=== PATIENT | male | born 1975 ===

== ENCOUNTER 2018-06-22 07:18 | Day surgery (SDC) | payer OTHER ==
[~2018-06-22] VITALS: Ht 177.8 cm; Wt 98.0 kg
[2018-06-22] VITALS (13 sets, daily range): BP systolic 99–133; BP diastolic 51–81
[~2018-06-22 07:18] MED LIST: NKM; Zemuron 50mg/5ml Inj IV ONE; ceFAZolin 1gm in D5W 55ml IVP SCH; celeBREX 200mg Cap **SURGERY PATIENTS ONLY ORAL SCH; oxyCONTIN 20mg tab ORAL SCH
--- NOTE | 2018-06-22 08:40 | Operative Note - PDOC ---
Operative Note Operative Note Pre-op Diagnosis: right shoulder labral tear/impingement Procedure: see op report Post-op Diagnosis: same as pre-op plus Operative Findings: consistent w/pre-op dx studies Anesthesia: regional Specimen: none Complications: none Condition: stable Estimated Blood Loss: none Implant(s) used?: No Matthias Omer MD Jun 22, 2018 08:40
--- NOTE | 2018-06-22 08:40 | Pre-Procedure Note/Attestation ---
Pre-Procedure Note/Attestation Complete Prior to Procedure Planned Procedure: right Procedure Narrative: shoulder arthroscopy, pssible labral repair, sad Indications for Procedure Pre-Operative Diagnosis: right shoulder labral tear/impingement Attestation I attest that I discussed the nature of the procedure; its benefits; risks and complications; and alternatives (and the risks and benefits of such alternatives ), prior to the procedure, with the patient (or the patient's legal billing representative). I attest that, if there was a reasonable possibility of needing a blood transfusion, the patient (or the patient's legal billing representative) was given the [facility] standardized written summary, pursuant to the [place] Blood Safety Act ([place] Health and Safety Code # 1645, as amended). I attest that I re-evaluated the patient just prior to the surgery and that there has been no change in the patient's H&P, except as documented below: Matthias Omer MD Jun 22, 2018 08:40
[2018-06-22] MEDS ORDERED: HYDROmorphone 1mg/ml Carpuject SUBQ PRN (08:45)
[2018-06-22] MEDS ORDERED: D5 1/2NS 1,000 ML IV SCH (08:45)
[2018-06-22] MEDS ORDERED: Norco 5mg/325mg tab ORAL PRN (08:45)
[2018-06-22] MEDS ORDERED: Tylenol #3 tab (300mg/30mg) ORAL PRN (08:45)
[2018-06-22] MEDS ORDERED: EPINEPHrine 1mg/1ml Amp ONE (08:46)
[2018-06-22] MEDS ORDERED: Bupivacaine 0.5% Inj 30 ml vial INJ ONE ×2 (08:47→09:18)
[2018-06-22] MEDS ORDERED: fentaNYL 100 mcg/2 mL IV ONE (08:57)
[2018-06-22] MEDS ORDERED: Midazolam 2mg/2ml Inj ONE (08:57)
--- NOTE | 2018-06-22 09:26 | Anethesia Preoperative Eval ---
Anesthesia Pre-op PMH/ROS General Date of Evaluation: Jun 22, 2018 Time of Evaluation: 09:25 Anesthesiologist: scotty ASA Score: ASA 2 Mallampati Score Class I : Soft palate, uvula, fauces, pillars visible Class II: Soft palate, uvula, fauces visible Class III: Soft palate, base of uvula visible Class IV: Only hard plate visible Mallampati Classification: Class I Surgeon: jerry Diagnosis: shoulder pain Surgical Procedure: shoulder arthroscopy Anesthesia History: none Family History: no anesthesia problems Allergies: Coded Allergies: No Known Allergies (Unverified , 06/20/18) Medications: see eMAR Past Medical History Cardiovascular: Denies: HTN, CAD, VT, valve dz, arrhythmia, other Pulmonary: Denies: asthma, COPD, SILVINO, other Gastrointestinal/Genitourinary: Reports: GERD Neurologic/Psychiatric: Denies: dementia, CVA, depression/anxiety, TIA, other Endocrine: Denies: DM, hypothyroidism, steroids, other HEENT: Denies: cataract (L), cataract (R), glaucoma, [place] (L), [place] (R), other Hematology/Immune: Denies: anemia, DVT, bleeding disorder, other Musculoskeletal/Integumentary: Reports: other - right shoulder pain; Denies: OA, RA, DJD, DDD, edema Other: obesity PSxH Narrative: none Anesthesia Pre-op Phys. Exam Physician Exam Last Vital Signs Date Time Temp Pulse Resp B/P (MAP) Pulse Ox O2 Delivery O2 Flow Rate FiO2 06/22/18 07:49 Room Air 06/22/18 07:49 98.2 74 18 133/81 (98) 97 98.2 Constitutional: NAD Neurologic: CN 2-12 intact Cardiovascular: RRR Respiratory: CTA Gastrointestinal: S/NT/ND Airway Exam Mallampati Classification 2 Mallampati Score: Class II MO: full Neck: thick TMD: 1fb ROM: full Dentures: no upper, no lower Anesthesia Pre-op A/P Studies Pre-op Studies: EKG - sr Risk Assessment & Plan Assessment: denies cp/sob Plan: general + ISB Status Change Before Surgery: No Pre-Antibiotics Drug: ancef Given Within 1 Hr of Incision: Yes Time Given: 10:10 Myra Abdul CRNA Jun 22, 2018 09:26
[2018-06-22] MEDS ORDERED: Ketorolac 30mg Inj IV PRN (09:30)
[2018-06-22] MEDS ORDERED: Acetaminophen (Non formulary) 100 ML IV ONE (09:30)
[2018-06-22] MEDS ORDERED: fentaNYL 100 mcg/2 mL IV PRN (09:30)
[2018-06-22] MEDS ORDERED: NS Irrig 4000ml IRRIG ONE ×3 (10:00→10:20)
[2018-06-22] MEDS ORDERED: LR 1000ml ONE (10:00)
[2018-06-22] MEDS ORDERED: Phenylephrine 10mg/ml Vial ONE (10:00)
[2018-06-22] MEDS ORDERED: EPINEPHrine 1mg/1ml Amp IV ONE (10:15)
--- NOTE | 2018-06-22 11:30 | Immediate Post-Op Evaluation ---
Immediate Post-Op Evalulation Immediate Post-Op Evalulation Procedure: right shoulder arthroscopy Date of Evaluation: Jun 22, 2018 Time of Evaluation: 11:29 IV Fluids: 700 Blood Pressure Systolic: 109 Blood Pressure Diastolic: 56 Pulse Rate: 50 Respiratory Rate: 14 O2 Sat by Pulse Oximetry: 98 Temperature (Fahrenheit): 97.5 Pain Score (1-10): 0 Nausea: No Vomiting: No Complications none Patient Status: awake, reacts, patent Hydration Status: adequate Drug: ancef Given Within 1 Hr of Incision: Yes Myra Abdul CRNA Jun 22, 2018 11:30
[2018-06-22] MEDS ORDERED: Glycopyrrolate 0.2mg/ml 1ml Vial ONE (14:18)
[2018-06-22] MEDS ORDERED: Neostigmine 1mg/ml 10ml Inj ONE (14:18)
[2018-06-22] MEDS ORDERED: Propofol 200mg/20ml IV ONE (14:19)
[2018-06-22] MEDS ORDERED: Lidocaine 1% MPF 10mg/ml 5ml ONE (14:19)
--- NOTE | 2018-06-22 16:24 | 48 Hour Post Anesthesia Eval ---
Post Anesthesia Evaluation Procedure: right shoulder arthroscopy Date of Evaluation: Jun 22, 2018 Time of Evaluation: 16:23 Blood Pressure Systolic: 119 0: 70 Pulse Rate: 56 Respiratory Rate: 14 O2 Sat by Pulse Oximetry: 99 Airway: patent Nausea: No Vomiting: No If pain is > 6 Comment: 0 Hydration Status: adequate Cardiopulmonary Status: stable Mental Status/LOC: patient returned to baseline Follow-up Care/Observations: na Post-Anesthesia Complications: none Follow-up care needed: N/A Myra Abdul CRNA Jun 22, 2018 16:24
--- NOTE | 2018-06-28 09:00 | Operative Note - Dictated ---
DATE OF OPERATION: 06/22/2018 PREOPERATIVE DIAGNOSIS: Right shoulder posterior possible superior labral tear to right shoulder impingement/AC joint arthropathy. POSTOPERATIVE DIAGNOSIS: Right shoulder posterior possible superior labral tear to right shoulder impingement/AC joint arthropathy. PROCEDURES: 1. Right shoulder diagnostic arthroscopy with extensive intra-articular debridement. 2. Right shoulder arthroscopic labral repair. 3. Subacromial decompression bursectomy. 4. AC joint coplaning. SURGEON: Matthias Omer M.D. ANESTHESIA: Interscalene with general. INDICATION FOR PROCEDURE: The patient is a pleasant gentleman, who has had progressive right shoulder pain. An MRI was consistent with a labral tear. He failed conservative treatment and elected to undergo right shoulder arthroscopy, labral stabilization, possible concurrent somewhat decompression bursectomy. Risks, limitations, expectations, and complications of the procedure were discussed in detail. All questions addressed. DESCRIPTION OF PROCEDURE: After informed consent was obtained, the patient was brought to the operating room and placed the patient under interscalene general anesthesia. The patient was then careful placed in the beach-chair position. Right shoulder was prepped and draped in a sterile manner. Time-out was performed. The portal sites were marked and injected with 0.25% Marcaine with epinephrine. Inferolateral stab incision was then made. Trocar was introduced into the glenohumeral joint. There is tearing of the anterior labrum as well as superior labrum. A medial anterior portal was established. The biceps tendon appeared to be intact along with the subscap. The undersurface of the rotator cuff was intact. The posterior labrum had fraying and tearing. The superior labrum seemed like it was torn as well. At this point, a shaver was then placed into the shoulder and the anterior or superior labral fragment was debrided along with some of this superior glenoid. Minong was then placed on the superior glenoid and the superior labrum was reattached. Camera was then positioned in the anterior portal. Through a posterior working portal, there was tearing of the posterior labrum. The anchor was then placed along the 11 o'clock position and posterior labrum was reattached. Once this was done, evaluation of the glenoid showed some chondral damage in the posterior and anterior aspect of the glenoid consistent where the labral tear was. At this point, the camera was repositioned in the subacromial space. A complete bursectomy and release of the CA ligament was performed. Undersurface of the acromion was identified. Acromioplasty was started from medial to lateral and completed from posterior to anterior. The bursectomy was completed. The bursal side of the rotator cuff was intact. Instruments removed. Portal sites were closed with 3-0 Monocryl suture. Steri-Strips and sterile dressing were applied. The patient was awoken and taken to recovery room with stable vital signs. ESTIMATED BLOOD LOSS: Minimal. COMPLICATIONS: None. SPECIMENS: None. IMPLANTS: Include 2 [employer] Jugger[employer]not anchors. Matthias Omer M.D. DR: ANIRUDH JOB#: [id number] CC: MARK
== END 2018-06-22 13:30 | disposition home or self-care (01) ==
LOC: SUR 07:18
DX: S43.431A Superior glenoid labrum lesion of right shoulder, initial encounter (principal); M54.12 Radiculopathy, cervical region; M54.16 Radiculopathy, lumbar region; E66.9 Obesity, unspecified; K21.9 Gastro-esophageal reflux disease without esophagitis; F17.210 Nicotine dependence, cigarettes, uncomplicated
CPT/HCPCS: 29807; 29826; J0171; J0690; J2250; J2370; J2405; J2704; J2710; J3010; J3490; J7120; 94003; 94150; C1713